=== PATIENT | female | born 1970 | race Caucasian/White ===

== ENCOUNTER 2018-05-10 14:22 | Emergency (ER) | payer MEDICAID ==
[2018-05-10] MEDS ORDERED: Ondansetron 8 MG Tab.DIS PO ONE (15:37)
[2018-05-10] MEDS ORDERED: HYDROmorphone 2 MG/ML SDV IM ONE (15:37)
--- NOTE | 2018-05-10 16:31 | EDM.PDOC ---
ED HPI GENERAL MEDICAL PROBLEM - General Chief Complaint: Upper Extremity Injury/Pain Stated Complaint: LT ARM PAIN Time Seen by Provider: 05/10/18 14:25 Source of Information: Reports: Patient History Limitations: Reports: No Limitations - History of Present Illness INITIAL COMMENTS - FREE TEXT/NARRATIVE: This pleasant. 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 Today the pain is markedly worse after having worked her truckdriving 2 AM to 2 PM shift. The pain in her left upper and forearm is described as knifelike and constant 10 out of 10 now but was 6-8 out of 10 on the average. The pain affects her sleep and makes difficult for sleep. 4 years ago she was diagnosed with breast cancer and had bilateral mastectomy. 3 months ago he completed plastic surgery for breast mammoplasty and denies upper extremity paresis, weakness, numbness or sensory changes. Denies cough, shortness breath, chest pain, irregular heart beats or neck pain. She's had recent cervical spine MRI which was negative for any disc encroachment but did demonstrate cervical spine stenosis. She took 2 Percocet earlier today. She had an injection (which appears from the needle bartolo mild/trace of hematoma be inferior to the scapular spine on the superior left mid infraspinatus on 05/08 which decreased her pain. (I am not sure if is was lidocaine, a long-acting analgesic, or a combination of either with kenalog) which has decreased her point first name for several (2) days but now the pains come back with a vengeance. She has an appointment to see her plastic surgeon who performed the breast mammoplasty on May 13, 2018, and to have an MRI of her shoulder on 28/04/18 at [facility]. She has no difficulty with this extension flexion biceps and tricep use. No history of coughing or flank tenderness. left arm Pain Score (Numeric/FACES): 10 - Related Data Allergies Allergy/AdvReac Type Severity Reaction Status Date / Time fentanyl Allergy Lethargy Verified 05/10/18 15:19 sulfamethoxazole Allergy Rash Verified 05/10/18 15:19 [From Bactrim] trimethoprim [From Bactrim] Allergy Rash Verified 05/10/18 15:19 Home Meds: Home Meds Acetaminophen [Arthritis Pain Relief] 650 mg PO Q4HR PRN 05/10/18 [History] Calcium/D3/K/FA/B12/C/Minerals [Ortho-Tabs] 1 tab PO DAILY 05/10/18 [History] Cetirizine HCl 10 mg PO DAILY 05/10/18 [History] Cyclobenzaprine [Flexeril] 10 mg PO TID 05/10/18 [History] Hydrocodone/Acetaminophen [Hydrocodon-Acetaminophen 5-325] 1 tab PO Q6HR PRN [History] Ibuprofen 600 mg PO TID PRN 05/10/18 [History] Levothyroxine [Synthroid] 50 mcg PO DAILY 05/10/18 [History] Omeprazole 40 mg PO DAILY 05/10/18 [History] Rizatriptan Benzoate [Rizatriptan] 5 mg PO ASDIRECTED PRN 05/10/18 [History] Vortioxetine Hydrobromide [Trintellix] 20 mg PO DAILY 05/10/18 [History] Zaleplon 10 mg PO BEDTIME PRN 05/10/18 [History] amLODIPine Besylate/Benazepril [Amlodipine-Benazepril 10-40 MG] 1 tab PO DAILY 05/10/18 [History] hydroCHLOROthiazide [Hydrochlorothiazide] 25 mg PO DAILY 05/10/18 [History] oxyCODONE 5 mg PO Q4HR PRN 05/10/18 [History] predniSONE [Prednisone] 10 mg PO DAILY 05/10/18 [History] tiZANidine [Zanaflex] 4 mg PO DAILY 05/10/18 [History] traZODone HCl [Trazodone HCl] 100 mg PO BEDTIME PRN 05/10/18 [History] Review of Systems - Review of Systems Review Of Systems: See Below Constitutional: Reports: No Symptoms Eyes: Reports: No Symptoms Ears: Reports: No Symptoms Nose: Reports: No Symptoms Mouth/Throat: Reports: No Symptoms Respiratory: Reports: No Symptoms Cardiovascular: Reports: No Symptoms GI/Abdominal: Reports: No Symptoms Genitourinary: Reports: No Symptoms Musculoskeletal: Reports: No Symptoms Skin: Reports: No Symptoms Neurological: Reports: Other (Severe left arm pain and forearm pain) Psychiatric: Reports: No Symptoms ED EXAM, GENERAL - Physical Exam Exam: See Below Exam Limited By: No Limitations General Appearance: Alert, WD/WN Eye Exam: Bilateral Eye: Normal Inspection Ears: Normal External Exam, Normal Canal, Hearing Grossly Normal, Normal TMs Ear Exam: Bilateral Ear: Auricle Normal Nose: Normal Inspection, Normal Mucosa Throat/Mouth: Normal Inspection, Normal Lips, Normal Teeth, Normal Gums, Normal Oropharynx, Normal Voice, No Airway Compromise Neck: Normal Inspection, Supple, Non-Tender, Full Range of Motion Respiratory/Chest: No Respiratory Distress, Lungs Clear, Normal Breath Sounds, No Accessory Muscle Use, Chest Non-Tender, Other (Bilateral mammoplasty completed without any signs of erythema or pectoral wall pain except for left lateral upper pectoral circumference mild) Cardiovascular: Normal Peripheral Pulses, Regular Rate, Rhythm, No Edema, No Gallop, No JVD, No Murmur, No Rub Peripheral Pulses: 1+: Carotid (L), Carotid (R), Brachial (L), Brachial (R), Radial (L), Radial (R) GI/Abdominal: Normal Bowel Sounds, Soft, Non-Tender, No Organomegaly, No Distention, No Abnormal Bruit, No Mass (Female) Exam: Deferred Rectal (Female) Exam: Deferred Back Exam: Normal Inspection, Full Range of Motion, Other (Old dermis scar from previous mammoplasty transplant of muscle to her anterior chest is healed without erythema) Extremities: Normal Inspection, Arm Pain, Other (Patient has 3/10 anterior upper arm deltoid pain, 10/10 distal upper arm pain in the vicinity of this cutaneous enervation and 10 out 10 pain left volar proximal forearm. No edema noted. Brachial radial ulnar pulses intact. Active resistance to wrist dorsiflexion(musculocutaneous nerve) testing causes pain in her proximal forearm. 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 No ulnar or radial disparity and muscle strength. No cutaneous loss of sensation left upper extremity.) Psychiatric: Normal Affect, Normal Mood Skin Exam: Warm, Intact, Normal Color Lymphatic: No Adenopathy Course - Vital Signs Last Recorded V/S: Last Vital Signs Temp 36.6 C 05/10/18 14:25 Pulse 88 05/10/18 16:30 Resp 16 05/10/18 16:30 BP 154/102 H 05/10/18 16:30 Pulse Ox 99 05/10/18 15:00 - Orders/Labs/Meds Meds: Medications Discontinued Medications Generic Name Dose Route Start Last Admin Trade Name Goldie PRN Reason Stop Dose Admin Hydromorphone HCl 2 mg 05/10/18 15:37 05/10/18 15:45 Dilaudid IM 05/10/18 15:38 2 mg ONETIME ONE Administration Ondansetron HCl 8 mg 05/10/18 15:37 05/10/18 15:44 Zofran Odt PO 05/10/18 15:38 8 mg ONETIME ONE Administration Departure - Departure Time of Disposition: 17:00 (Patient's severe pain and grams IM have. Consequently she needs a more sophisticated more intensive intervention to evaluate her vascular studies to rule out vascular abnormality. There is no suggestion of vascular abnormality but perhaps I'm missing something and she may need a more acute evaluation of her vascular status of the left upper extremity. Otherwise would need MRI of the brachial plexus and shoulder and had previous cervical spine MRI. At 1701 on 30 minutes after receiving 2 mg Dilaudid IM her pain did not go away. Consequently patient will be transferred to [facility] Dr. Temitope Lyon will be seeing her arrangements have been made for transfer to [facility]. Patient will go with her who is going to transport to the hospital.) Disposition: DC/Tfer to Hospice - Home 50 Condition: Fair Clinical Impression: Brachial plexus neuralgia - Discharge Information *PRESCRIPTION DRUG MONITORING PROGRAM REVIEWED*: Not Applicable *COPY OF PRESCRIPTION DRUG MONITORING REPORT IN PATIENT YANETH: Not Applicable Referrals: PCP,Not In Area [Primary Care Provider] - Forms: ED Department Discharge Additional Instructions: You seem to have some involvement of the lower trunk and medial cord of the brachial plexus causing the pain in your lower left upper and forearm. This may be brachial plexus involvement. We scheduled an MRI a few brachial plexus shoulder and chest to make sure that there is no relationship of metastatic breast cancer to these nerves. The appointment for the MRI is at 1:00 May 13 at [facility]. I will be in the hospital Emergency Room Friday, and Friday. Feel free to call me if you should need to talk to me [phone]. Most likely you may need a brachial plexus block to get rid of this pain.
== END 2018-05-10 17:45 | disposition hospice, home (50) ==
LOC: FB.ED 14:22
DX: G54.0 Brachial plexus disorders (principal); Z88.8 Allergy status to other drugs, medicaments and biological substances; Z88.2 Allergy status to sulfonamides; Z88.1 Allergy status to other antibiotic agents; Z79.899 Other long term (current) drug therapy
CPT/HCPCS: 96372; 99284; A9270; J1170

== ENCOUNTER 2018-05-12 06:08 | Emergency (ER) | payer MEDICAID ==
[2018-05-12] MEDS ORDERED: Ketorolac 30 MG/ML SDV IM ONE (06:51)
--- NOTE | 2018-05-12 07:01 | EDM.PDOC ---
ED HPI GENERAL MEDICAL PROBLEM - General Chief Complaint: Upper Extremity Injury/Pain Stated Complaint: LT SHOULDER PAIN Time Seen by Provider: 05/12/18 06:35 Source of Information: Reports: Patient, Old Records History Limitations: Reports: No Limitations - History of Present Illness INITIAL COMMENTS - FREE TEXT/NARRATIVE: Lori returns to [facility] ED for pain managment of a disorder affecting the LUE. She has been symptomatic over the past 6 weeks with pain originating in the L shoulder girdle that more recently has migrated into the L arm, forearm, hand and digits over the past 4 weeks. There is numbness in the L hand and wrist, but no weakness is perceived. MRI results of C-spine were negative. She has seen an orthopedist in [place] recently, and is awaiting results of an MRI study of the L shoulder. There is no injury hx. Of interest is a PMH of Stage 2 Breast CA, status post bilateral mastectomy with reconstructive breast surgeries. She is requesting Toradol for pain management. - Related Data Allergies Allergy/AdvReac Type Severity Reaction Status Date / Time fentanyl Allergy Lethargy Verified 05/12/18 06:19 sulfamethoxazole Allergy Rash Verified 05/12/18 06:19 [From Bactrim] trimethoprim [From Bactrim] Allergy Rash Verified 05/12/18 06:19 Home Meds: Home Meds Acetaminophen [Arthritis Pain Relief] 650 mg PO Q4HR PRN 05/10/18 [History] Calcium/D3/K/FA/B12/C/Minerals [Ortho-Tabs] 1 tab PO DAILY 05/10/18 [History] Cetirizine HCl 10 mg PO DAILY 05/10/18 [History] Cyclobenzaprine [Flexeril] 10 mg PO TID 05/10/18 [History] Hydrocodone/Acetaminophen [Hydrocodon-Acetaminophen 5-325] 1 tab PO Q6HR PRN [History] Ibuprofen 600 mg PO TID PRN 05/10/18 [History] Levothyroxine [Synthroid] 50 mcg PO DAILY 05/10/18 [History] Omeprazole 40 mg PO DAILY 05/10/18 [History] Rizatriptan Benzoate [Rizatriptan] 5 mg PO ASDIRECTED PRN 05/10/18 [History] Vortioxetine Hydrobromide [Trintellix] 20 mg PO DAILY 05/10/18 [History] Zaleplon 10 mg PO BEDTIME PRN 05/10/18 [History] amLODIPine Besylate/Benazepril [Amlodipine-Benazepril 10-40 MG] 1 tab PO DAILY 05/10/18 [History] hydroCHLOROthiazide [Hydrochlorothiazide] 25 mg PO DAILY 05/10/18 [History] oxyCODONE 5 mg PO Q4HR PRN 05/10/18 [History] predniSONE [Prednisone] 10 mg PO DAILY 05/10/18 [History] tiZANidine [Zanaflex] 4 mg PO DAILY 05/10/18 [History] traZODone HCl [Trazodone HCl] 100 mg PO BEDTIME PRN 05/10/18 [History] Ketorolac [Toradol] 10 mg PO Q6H PRN #20 tab 05/12/18 [Rx] Past Medical History - Past Health History Medical/Surgical History: Denies Medical/Surgical History Oncologic (Cancer) History: Reports: Breast - Past Surgical History Female Surgical History: Reports: Breast Biopsy, Breast Reconstruction, Mastectomy Review of Systems - Review of Systems Review Of Systems: ROS reveals no pertinent complaints other than HPI. ED EXAM, GENERAL - Physical Exam Exam: See Below Exam Limited By: No Limitations General Appearance: Alert, WD/WN, Anxious, Mild Distress Head: Normocephalic Neck: Normal Inspection, Supple, Non-Tender, Full Range of Motion Respiratory/Chest: Lungs Clear, Normal Breath Sounds, Chest Non-Tender Cardiovascular: Regular Rate, Rhythm, No Murmur Back Exam: Normal Inspection Extremities: Normal Inspection, Normal Range of Motion, Other (tenderness in proximity to levator scapulae on the left, FROM) Neurological: Alert, Oriented, CN II-XII Intact, Normal Reflexes, Sensory/Motor Deficit (hypesthesias to lt touch L hand and digits) Psychiatric: Normal Affect, Anxious Skin Exam: Warm, Dry, Intact, Normal Color, No Rash Lymphatic: No Adenopathy Course - Vital Signs Text/Narrative:: I administered Toradol 30 mg IM prior to discharge, tolerated well. Last Recorded V/S: Last Vital Signs Temp 36.4 C 05/12/18 06:20 Pulse 99 05/12/18 06:20 Resp 18 05/12/18 06:20 BP 118/85 05/12/18 06:20 Pulse Ox 99 05/12/18 06:20 - Orders/Labs/Meds Meds: Medications Discontinued Medications Generic Name Dose Route Start Last Admin Trade Name Goldie PRN Reason Stop Dose Admin Ketorolac Tromethamine 30 mg 05/12/18 06:51 Toradol IM 05/12/18 06:52 ONETIME ONE Departure - Departure Time of Disposition: 06:50 Disposition: Home, Self-Care 01 Condition: Fair Clinical Impression: Paresthesias in left hand - Discharge Information *PRESCRIPTION DRUG MONITORING PROGRAM REVIEWED*: Not Applicable *COPY OF PRESCRIPTION DRUG MONITORING REPORT IN PATIENT YANETH: Not Applicable Prescriptions: Ketorolac [Toradol] 10 mg PO Q6H PRN #20 tab PRN Reason: Breakthrough Pain Referrals: PCP,Not In Area [Primary Care Provider] - - Problem List & Annotations (1) Paresthesias in left hand SNOMED Code(s): 924563103 Code(s): R20.2 - PARESTHESIA OF SKIN Status: Acute Current Visit: Yes Annotation/Comment:: I dispensed toradol 10 mg q 6 hrs prn for pain. - Problem List Review Problem List Initiated/Reviewed/Updated: Yes - Assessment/Plan Plan: Follow up with Orthopedic solution consultant this week.
== END 2018-05-12 07:00 | disposition home or self-care (01) ==
LOC: FB.ED 06:08
DX: R20.2 Paresthesia of skin (principal); Z79.899 Other long term (current) drug therapy; Z88.8 Allergy status to other drugs, medicaments and biological substances
CPT/HCPCS: 96372; 99283; J1885